=== PATIENT | female | born 1975 | race Caucasian/White ===

== ENCOUNTER 2016-12-14 02:56 | Emergency (ER) | payer OTHER ==
[2016-12-14 03:29] LABS: BILIRUBIN NEGATIVE (NEGATIVE); BLOOD 2+ Ery/uL (NEGATIVE); CLARITY CLEAR (CLEAR); COLOR YELLOW (YELLOW); GLUCOSE (U) NORMAL (NORMAL); KETONE (U) NEGATIVE (NEGATIVE); LEUKOCYTES NEGATIVE Leu/uL (NEGATIVE); NITRITE NEGATIVE (NEGATIVE); PROTEIN 1+ mg/dL (NEGATIVE); SPECIFIC GRAVITY >=1.030 (1.001-1.030); UROBILINOGEN 0.2 mg/dL (0.2-1.0)
[2016-12-14 03:35] LABS: BACTERIA TRACE; SQUAMOUS EPITHELIAL CELLS RARE
[2016-12-14 03:36] LABS: MUCOUS TRACE
== END 2016-12-14 04:30 | disposition home or self-care (01) ==
LOC: FER 02:56
PROVIDERS: Emergency Medicine
DX: N13.2 Hydronephrosis with renal and ureteral calculous obstruction (principal)
CPT/HCPCS: 81001; 87088; J1885

== ENCOUNTER 2017-04-08 21:16 | Emergency (ER) | payer OTHER | END 2017-04-08 23:48 | disposition home or self-care (01) | LOC: FER 21:16 | DX: M54.5 Low back pain (principal); M19.90 Unspecified osteoarthritis, unspecified site; F17.210 Nicotine dependence, cigarettes, uncomplicated; Z98.890 Other specified postprocedural states; Z79.899 Other long term (current) drug therapy | CPT/HCPCS: J1100; J1170 ==

== ENCOUNTER 2020-12-16 18:37 | Emergency (ER) | payer OTHER ==
[~2020-12-16 18:37] MED LIST: AMOXICILLIN500 MG PO; BACLOFEN 10MG T10 MG PO; DESYREL50 MG PO; ESCITALOPRAM OX20 MG PO; ESTRADIOL1 MG PO; GABAPENTIN300 MG PO; PERCOCET 10/321 EACH PO
== END 2020-12-16 21:54 | disposition home or self-care (01) ==
LOC: FER 18:37
DX: M54.5 Low back pain (principal); G89.29 Other chronic pain; R11.0 Nausea; F17.210 Nicotine dependence, cigarettes, uncomplicated; Z79.891 Long term (current) use of opiate analgesic
CPT/HCPCS: 72110; 73502; J1170